=== PATIENT | female | born 1970 | race Hispanic/Latino ===

== ENCOUNTER → 2017-10-11 | Outpatient (CLI) | payer OTHER ==
[~2017-10-11] MED LIST: ACETAMINOP325 MG/10 PO; ADVIL200 MG PO
--- NOTE | 2017-10-19 16:07 | Diagnostic Imaging Report ---
#[id number] - MGSCRBIL #BILATERAL DIGITAL SCREENING MAMMOGRAM WITH CAD: 10/11/2017 CLINICAL: Routine screening. Comparison is made to exams dated: 12/20/2016 mammogram, 01/14/2016 mammogram and 11/26/2014 mammogram - [facility]. Current study contains 4 films. The tissue of both breasts is heterogeneously dense. This may lower the sensitivity of mammography. Current study was also evaluated with a Computer Aided Detection (CAD) system. There is a biopsy clip in the right breast. No significant masses, calcifications, or other findings are seen in either breast. There has been no significant interval change. IMPRESSION: BENIGN There is no mammographic evidence of malignancy. A 1 year screening mammogram is recommended. The patient will be notified by letter of the results. Hugh shelton/lianna:10/19/2017 08:38:22 Resident Programs Assistant: Lily FAIRBANKS(R)(M), [facility] letter sent: Compared to Prior B9 Mammogram BI-RADS: 2 Benign
== END ==
LOC: MAMMO 09:51
PROVIDERS: ATTEND Obstetrics & Gynecology
DX: Z12.31 Encounter for screening mammogram for malignant neoplasm of breast (principal)
CPT/HCPCS: G0202

== ENCOUNTER → 2017-11-19 | Outpatient (CLI) | payer OTHER ==
--- NOTE | 2017-11-20 08:25 | Diagnostic Imaging Report ---
#[id number] - USBRECOMLT ULTRASOUND OF THE LEFT BREAST : 11/19/2017 Comparison is made to exams dated: 10/11/2017 mammogram, 12/20/2016 ultrasound and 12/20/2016 mammogram - [facility]. Color flow and real-time ultrasound were performed on the entire left breast with scanning in all four quadrants, retroareolar region and the left axilla. -Hypoechoic nodule at 2:00 that is 1 cm from the nipple is smaller now measuring 5 x 5 x 6 mm -Multiple cysts are either smaller or stable -Hypoechoic nodule at 11:00 that is 1 cm from the nipple is similar in size IMPRESSION: BENIGN There is no sonographic evidence of malignancy or interval change. A 1 year screening mammogram is recommended. Hugh Leos Jr., D.O. cw/:11/19/2017 15:20:27 Nuclear Technician: MARTELL GONZALEZ, [facility] letter sent: Normal Exam Ultrasound BI-RADS: 2 Benign
--- NOTE | 2017-11-20 08:25 | Diagnostic Imaging Report ---
#[id number] - USBRECOMRT ULTRASOUND OF THE RIGHT BREAST : 11/19/2017 Comparison is made to exams dated: 10/11/2017 mammogram, 12/20/2016 ultrasound and 12/20/2016 mammogram - [facility]. Color flow and real-time ultrasound were performed on the entire right breast with scanning in all four quadrants, retroareolar region and the right axilla. -A cyst is present at 7 o'clock 10 cm from the nipple measuring 4 x 3 x 7 mm. -A cyst is present at 9 o'clock 5 cm from the nipple measuring 3 x 5 x 2 mm. This is at the site of pain. Directly adjacent is a heterogenous area of distortion that may be related to the prior biopsy. -A heterogenous area at 11 o'clock 3 cm from the nipple appears more prominent. This should be followed up especially if the patient continues to have pain. IMPRESSION: PROBABLY BENIGN - FOLLOW-UP RECOMMENDED A follow-up ultrasound in 6 months is recommended to demonstrate stability if there is continued symptoms. The patient was notified of these findings and the need for followup as clinically indicated. The recent mammogram in October 2017 appeared normal. Hugh Leos Jr., D.O. cw/:11/19/2017 15:33:55 Secondary School Teacher: MARTELL GONZALEZ, [facility] letter sent: Followup Recommended Ultrasound BI-RADS: 3 Probably benign
== END ==
LOC: US 13:06
PROVIDERS: ATTEND Obstetrics & Gynecology
DX: R92.2 Inconclusive mammogram (principal)

== ENCOUNTER → 2018-06-04 | Outpatient (CLI) | payer OTHER ==
--- NOTE | 2018-06-05 08:57 | Diagnostic Imaging Report ---
#[id number] [facility] : 06/04/2018 Comparison is made to exams dated: 11/19/2017 ultrasound, 10/11/2017 mammogram, 12/20/2016 ultrasound, 12/20/2016 mammogram and 08/17/2016 ultrasound - [facility]. Color flow and real-time ultrasound were performed on the entire right breast with scanning in all four quadrants, retroareolar region and the right axilla. -At 1 o'clock 5 cm from the nipple is a benign appearing hypoechoic nodule measuring 4 x 2 x 5 mm. -At 1 o'clock 2 cm from the nipple is a benign cyst measuring 4 x 3 x 6 mm. -At 7 o'clock 10 cm from the nipple is a benign cyst measuring 7 x 7 x 8 mm (previously 4 x 3 x 7 mm) -At 9 o'clock 5 cm from the nipple is a benign cyst measuring 5 x 3 x 4 mm (previously 5 x 2 x 3) -At 11 o'clodk where there was a hypoechoic nodule on the previous exam no abnormality is visualized. IMPRESSION: BENIGN There is no sonographic evidence of malignancy. A 1 year screening mammogram is recommended. Hugh Leos Jr., D.O. cw/:06/04/2018 14:15:20 [employer]chant [employer]: HECTOR MARIE RDMS, [facility] letter sent: Normal Exam Ultrasound BI-RADS: 2 Benign
== END ==
LOC: US 09:39
PROVIDERS: ATTEND Obstetrics & Gynecology
DX: N60.01 Solitary cyst of right breast (principal)

== ENCOUNTER → 2019-02-12 | Outpatient (CLI) | payer OTHER ==
--- NOTE | 2019-02-12 13:17 | Diagnostic Imaging Report ---
EXAM: US ABDOMEN COMPLETE INDICATION: Abdominal pain. COMPARISON: None TECHNIQUE: Transverse and longitudinal mcwilliams scale and color doppler sonographic images of the abdomen were obtained. FINDINGS: LIVER 14.2 cm in the right midclavicular line. Increased echogenicity of the liver with normal contour, no masses. SPLEEN 10.2 cm in maximum diameter. Normal echogenicity, no masses. GALLBLADDER There is cholelithiasis at the gallbladder neck. No gallbladder wall thickening, distension, or pericholecystic fluid. Negative reported sonographic Robles's sign. BILE DUCTS No intra nor extra-hepatic biliary dilation. Common bile duct measures 0.2 cm PANCREAS: Visualized portions are normal. RIGHT KIDNEY: 10.4 cm Echogenicity: Normal Collecting System: No hydronephrosis Stones: None Cyst/Mass: None LEFT KIDNEY: 9.8 cm Echogenicity: Normal Collecting System: No hydronephrosis Stones: None Cyst/Mass: None VESSELS: Aorta: Limited evaluation due to overlying bowel gas. Inferior Vena Cava: Limited evaluation due to overlying bowel gas. Main Portal Vein: 0.5 cm, normal size with hepatopetal flow. FREE FLUID: None IMPRESSION: Nonmobile gallstones at the gallbladder neck. No sonographic evidence of cholecystitis. Hepatic steatosis. Signed by: Dr. Jaime Spence MD on 02/12/2019 1:14 PM
== END ==
LOC: US 11:40
PROVIDERS: ATTEND Family Medicine
DX: R10.9 Unspecified abdominal pain (principal); K80.80 Other cholelithiasis without obstruction; K76.0 Fatty (change of) liver, not elsewhere classified
CPT/HCPCS: 76700

== ENCOUNTER → 2019-02-21 | Outpatient (CLI) | payer OTHER ==
--- NOTE | 2019-02-21 15:07 | Diagnostic Imaging Report ---
Hepatobiliary Scan with Gallbladder Ejection Fraction Clinical information: Abdominal pain; cholelithiasis Technique: Following intravenous administration of 6.5 millicuries of Tc-99m mebrofenin, dynamic images of the abdomen in the anterior projection were obtained through 16 minutes. Sincalide (CCK analog) 1.3 micrograms was administered intravenously over 30 minutes with additional imaging for determination of gallbladder ejection fraction. Discussion: Perfusion of the liver is normal. Extraction of tracer by the liver parenchyma is normal. Tracer appears promptly within the biliary tract. The gallbladder begins to fill by 8 minutes post injection of tracer and fills adequately. Tracer is seen in the small bowel by 8 minutes. The gallbladder ejection fraction with sincalide is 10% (normal greater than 40%). Impression: 1. Filling of the gallbladder excludes acute cystic duct obstruction/acute cholecystitis. 2. The decreased gallbladder ejection fraction of 10% supports the clinical diagnosis of chronic cholecystitis/gallbladder dyskinesia. Signed by: Dr. Lily Ribeiro M.D. on 02/21/2019 3:03 PM
== END ==
LOC: NM 11:29
PROVIDERS: ATTEND Family Medicine
DX: R10.9 Unspecified abdominal pain (principal); K80.80 Other cholelithiasis without obstruction
CPT/HCPCS: 78227; A9537

== ENCOUNTER → 2019-03-28 | Day surgery (SDC) | payer OTHER ==
[2019-03-25 14:01] LABS: BASOPHILS % 0.6 % (0.0-1.0); EOSINOPHILS # (AUTO) 0.1 (0.0-0.4); EOSINOPHILS % 1.1 % (0.0-6.0); HEMATOCRIT 39.9 % (34.2-44.1); HEMOGLOBIN 13.1 g/dL (12.0-16.0); LYMPHOCYTES # (AUTO) 2.5 (1.0-3.2); LYMPHOCYTES % 39.7 % (18.0-39.1); MEAN CORPUSCULAR HEMOGLOBIN 29.6 pg (28-32); MEAN CORPUSCULAR HGB CONC 32.8 g/dL (31-35); MEAN CORPUSCULAR VOLUME 90.1 fL (81-99); MONOCYTES # (AUTO) 0.3 (0.2-0.8); MONOCYTES % 4.8 % (4.4-11.3); NEUTROPHILS # (AUTO) 3.4 (2.1-6.9); NEUTROPHILS % 53.6 % (38.7-80.0); PLATELET COUNT 217 x10e3/uL (140-360); RED BLOOD COUNT 4.43 x10e6/uL (3.6-5.1)
[2019-03-25 14:17] LABS: ANION GAP 11.7 mmol/L (8-16); BLOOD UREA NITROGEN 13 mg/dL (7-26); BUN/CREATININE RATIO 17 (6-25); CALCIUM 9.4 mg/dL (8.4-10.2); CARBON DIOXIDE 26 mmol/L (22-29); CHLORIDE 105 mmol/L (98-107); CREATININE, SERUM 0.75 mg/dL (0.57-1.11); EST GLOMERULAR FILTRATION RATE > 60 ML/MIN (60-); GLUCOSE 75 mg/dL (74-118); POTASSIUM 3.7 mmol/L (3.5-5.1); SODIUM 139 mmol/L (136-145)
[~2019-03-28] MED LIST changes: +BUPIVACAINE 0.25%/EPI 30ML SDV INJ ONE; +DEXAMETHASONE SOD PHOS INJ 4 MG/ML VIAL ONE; +EPHEDRINE SULFATE INJ 50 MG/10 ML SYR ONE; +FENTANYL CITRATE/PF 100MCG/2 ML INJ ONE; +GLYCOPYRROLATE INJ 1MG/ 5 ML SYR ONE; +HYDROCODONE/APAP 7.5MG-325MG 1 EA TAB ONE; +KETOROLAC TROMETHAMINE 30 MG/ML VIAL ONE; +LIDOCAINE HCL 2% LOCAL INJ 5 ML SDV VIAL INJ ONE; +MIDAZOLAM HCL 2 MG/2 ML VIAL ONE; +NEOSTIGMINE 5 MG/5ML SYR ONE; +ONDANSETRON HCL INJ 2MG/ML 2ML 2 MG/ML VIAL ONE; +PROPOFOL IV EMULSION 10 MG/ML 20 ML VIAL ONE; +ROCURONIUM BROMIDE 10 MG/ML 5ML VIAL ONE; +SEVOFLURANE INHAL SOLN 250 ML PEN BTL ONE
--- OUTSIDE RECORDS SUMMARY | 2019-03-28 07:10 | XMS REPORT ---
Author Author [facility] Address Unknown Phone Unavailable Care Team Providers Care Paving Rammer Name Role Phone WAQAR SHEIKH Unavailable Unavailable RENZO GA Unavailable Unavailable Problems This patient has no known problems. Allergies, Adverse Reactions, Alerts This patient has no known allergies or adverse reactions. Medications This patient has no known medications. Results Test Description Test Time Test Comments Text Results Atomic Results Result Comments HEPTOBILIARY W PHARM 2019-02-21 15:03:00 [place] [address] Patient Name: PAUL DANIEL MR #: [id number] : 1970 Age/Sex: 48/F Req #: [id number] Adm Physician: Ordered by: KORI SMITH, WAQAR Gusman MD Report #: [id number] Location: [place] Room/Bed: Procedure: [id number] NM/HEPTOBILIARY W PHARM Exam Date: Exam Time: REPORT STATUS: Signed Hepatobiliary Scan with Gallbladder Ejection Fraction Clinical information: Abdominal pain; cholelithiasis Technique: Following intravenous administration of 6.5 millicuries of Tc-99m mebrofenin, dynamic images of the abdomen in the anterior projection were obtained through 16 minutes. Sincalide (CCK analog) 1.3 micrograms was administered intravenously over 30 minutes with additional imaging for determination of gallbladder ejection fraction. Discussion: Perfusion of the liver is normal. Extraction of tracer by the liver parenchyma is normal. Tracer appears promptly within the biliary tract. The gallbladder begins to fill by 8 minutes post injection of tracer and fills adequately. Tracer is seen in the small bowel by 8 minutes. The gallbladder ejection fraction with sincalide is 10% (normal greater than 40%). Impression: 1. Filling of the gallbladder excludes acute cystic duct obstruction/acute cholecystitis. 2. The decreased gallbladder ejection fraction of 10% supports the clinical diagnosis of chronic cholecystitis/gallbladder dyskinesia. Signed by: Dr. Alexis Ribeiro M.D. on 02/21/2019 3:03 PM Dictated By: ALEXIS RIBEIRO MD 1501 Transcribed By: KIMBERLY on 02/21/19 150 COPY TO: WAQAR SHEIKH US ABDOMEN COMPLETE 2019-02-12 13:10:00 [place] [address] Patient Name: PAUL DAINEL MR #: [id number] : 1970 Age/Sex: 48/F Req #: [id number] Adm Physician: Ordered by: KORI SMITH, WAQAR Gusman MD Report #: [id number] Location: Room/Bed: Procedure: [id number] US/US ABDOMEN COMPLETE Exam Date: 02/12/19 Exam Time: 1217 REPORT STATUS: Signed EXAM: US ABDOMEN COMPLETE INDICATION: Abdominal pain. COMPARISON: None TECHNIQUE: Transverse and longitudinal mcwilliams scale and color doppler sonographic images of the abdomen were obtained. FINDINGS: LIVER 14.2 cm in the right midclavicular line. Increased echogenicity of the liver with normal contour, no masses. SPLEEN 10.2 cm in maximum diameter. Normal echogenicity, no masses. GALLBLADDER There is cholelithiasis at the gallbladder neck. No gallbladder wall thickening, distension, or pericholecystic fluid. Negative reported sonographic Robles's sign. BILE DUCTS No intra nor extra-hepatic biliary dilation. Common bile duct measures 0.2 cm PANCREAS: Visualized portions are normal. RIGHT KIDNEY: 10.4 cm Echogenicity: Normal Collecting System: No hydronephrosis Stones: None Cyst/Mass: None LEFT KIDNEY: 9.8 cm Echogenicity: Normal Collecting System: No hydronephrosis Stones: None Cyst/Mass: None VESSELS: Aorta: Limited evaluation due to overlying bowel gas. Inferior Vena Cava: Limited evaluation due to overlying bowel gas. Main Portal Vein: 0.5 cm, normal size with hepatopetal flow. FREE FLUID: None IMPRESSION: Nonmobile gallstones at the gallbladder neck. No sonographic evidence of cholecystitis. Hepatic steatosis. Signed by: Dr. Cody Mary MD on 02/12/2019 1:14 PM Dictated By: CODY MARY MD 1314 Transcribed By: KIMBERLY on 02/12/19 1314 COPY TO: WAQAR SHEIKH US BREAST COMPLETE RIGHT 2018-06-04 10:52:00 [place] [address] Patient Name: PAUL DANIEL MR #: [id number] : 1970 Age/Sex: 48/F Req #: [id number] Adm Physician: Ordered by: RENZO GA MD Report #: [id number] Location: Room/Bed: Procedure: [id number] US/US BREAST COMPLETE RIGHT Exam Date: 06/04/18 Exam Time: 1001 REPORT STATUS: Signed #[id number] - USBRECOMRT ULTRASOUND OF THE RIGHT BREAST : 06/04/2018 Comparison is made to exams dated: 11/19/2017 ultrasound, 10/11/2017 mammogram, 12/20/2016 ultrasound, 12/20/2016 mammogram and 08/17/2016 ultrasound - [facility]. Color flow and real-time ultrasound were performed on the entire right breast with scanning in all four quadrants, retroareolar region and the right axilla. -At 1 o'clock 5 cm from the nipple is a benign appearing hypoechoic nodule measuring 4 x 2 x 5 mm. -At 1 o'clock 2 cm from the nipple is a benign cyst measuring 4 x 3 x 6 mm. -At 7 o'clock 10 cm from the nipple is a benign cyst measuring 7 x 7 x 8 mm (previously 4 x 3 x 7 mm) -At 9 o'clock 5 cm from the nipple is a benign cyst measuring 5 x 3 x 4 mm (previously 5 x 2 x 3) -At 11 o'clodk where there was a hypoechoic nodule on the previous exam no abnormality is visualized. IMPRESSION: BENIGN There is no sonographic evidence of malignancy. A 1 year screening mammogram is recommended. Flor Leos Jr., D.O. cw/:06/04/2018 14:15:20 Flight Coordinator: HECTOR MARIE [facility], [facility] letter sent: Normal Exam Ultrasound BI-RADS: 2 Benign Dictated By: FLOR LEOS DO 141 Transcribed By: WIL on 06/04/18 1415 COPY TO: RENZO GA MD US BREAST COMPLETE LEFT [place] [address] Patient Name: PAUL DANIEL MR #: [id number] : 1970 Age/Sex: 47/F Req #: [id number] Adm Physician: Ordered by: RENZO GA MD Report #: [id number] Location: US Room/Bed: Procedure: [id number] US/US BREAST COMPLETE LEFT Exam Date: 11/19/17 Exam Time: 1345 REPORT STATUS: Signed #[id number] - USBRECOMLT ULTRASOUND OF THE LEFT BREAST : 11/19/2017 Comparison is made to exams dated: 10/11/2017 mammogram, 12/20/2016 ultrasound and 12/20/2016 mammogram - [facility]. Color flow and real-time ultrasound were performed on the entire left breast with scanning in all four quadrants, retroareolar region and the left axilla. -Hypoechoic nodule at 2:00 that is 1 cm from the nipple is smaller now measuring 5 x 5 x 6 mm -Multiple cysts are either smaller or stable - Hypoechoic nodule at 11:00 that is 1 cm from the nipple is similar in size IMPRESSION: BENIGN There is no sonographic evidence of malignancy or interval change. A 1 year screening mammogram is recommended. Flor Leos Jr., D.O. cw/:11/19/2017 15:20:27 Flight Coordinator: MARTELL GONZALEZ, [facility] letter sent: Normal Exam Ultrasound BI-RADS: 2 Benign Dictated By: FLOR LEOS DO 1520 Transcribed By: WIL on 11/19/17 1520 COPY TO: RENZO GA MD US BREAST COMPLETE RIGHT [place] [address] Patient Name: PAUL DANIEL MR #: [id number] : 1970 Age/Sex: 47/F Req #: [id number] Adm Physician: Ordered by: RENZO GA MD Report #: [id number] Location: US Room/Bed: Procedure: [id number] US/US BREAST COMPLETE RIGHT Exam Date: 11/19/17 Exam Time: 1345 REPORT STATUS: Signed #[id number] - USBRECOMRT ULTRASOUND OF THE RIGHT BREAST : 11/19/2017 Comparison is made to exams dated: 10/11/2017 mammogram, 12/20/2016 ultrasound and 12/20/2016 mammogram - [facility]. Color flow and real-time ultrasound were performed on the entire right breast with scanning in all four quadrants, retroareolar region and the right axilla. -A cyst is present at 7 o'clock 10 cm from the nipple measuring 4 x 3 x 7 mm. -A cyst is present at 9 o'clock 5 cm from the nipple measuring 3 x 5 x 2 mm. This is at the site of pain. Directly adjacent is a heterogenous area of distortion that may be related to the prior biopsy. -A heterogenous area at 11 o'clock 3 cm from the nipple appears more prominent. This should be followed up especially if the patient continues to have pain. IMPRESSION: PROBABLY BENIGN - FOLLOW-UP RECOMMENDED A follow-up ultrasound in 6 months is recommended to demonstrate stability if there is continued symptoms. The patient was notified of these findings and the need for followup as clinically indicated. The recent mammogram in October 2017 appeared normal. Flor Leos Jr., D.O. cw/:11/19/2017 15:33:55 Flight Coordinator: MARTELL GONZALEZ, [facility] letter sent: Followup Recommended Ultrasound BI-RADS: 3 Probably benign Dictated By: FLOR LEOS DO 1533 Transcribed By: WIL on 11/19/17 1533 COPY TO: RENZO GA MD MAMMOGRAPHY DIGITAL SCR BILAT [facility] [address] [place] [address] Patient Name: PAUL DANIEL MR #: [id number] : 1970 Age/Sex: 47/F Req #: [id number] Adm Physician: Ordered by: RENZO GA MD Report #: [id number] Location: MAMMO Room/Bed: Procedure: [id number] MG/MAMMOGRAPHY DIGITAL SCR BILAT Exam Date: 10/11/17 Exam Time: 1000 REPORT STATUS: Signed #[id number] - MGSCRBIL #BILATERAL DIGITAL SCREENING MAMMOGRAM WITH CAD: 10/11/2017 CLINICAL: Routine screening. Comparison is made to exams dated: 12/20/2016 mammogram, 01/14/2016 mammogram and 11/26/2014 mammogram - [facility]. Current study contains 4 films. The tissue of both breasts is heterogeneously dense. This may lower the sensitivity of mammography. Current study was also evaluated with a Computer Aided Detection (CAD) system. There is a biopsy clip in the right breast. No significant masses, calcifications, or other findings are seen in either breast. There has been no significant interval change. IMPRESSION: BENIGN There is no mammographic evidence of malignancy. A 1 year screening mammogram is recommended. The patient will be notified by letter of the results. Flor shelton/wil:10/19/2017 08:38:22 Flight Coordinator: Alexis SOLIS)(M), [facility] letter sent: Compared to Prior B9 Mammogram BI- RADS: 2 Benign Dictated By: FLOR LEOS DO 7 Transcribed By: WIL on 10/19/17837 COPY TO: RENZO GA MD
--- OUTSIDE RECORDS SUMMARY | 2019-03-28 07:10 | XMS REPORT | Summary of Care ---
Author Author [facility] Organization [facility] Address Unknown Phone Unavailable Encounter HQ Parvizntr_liborio(FIN) [id number] Date(s): 01/08/17 - 01/08/17 [facility] [address] [place] [address]- Discharge Disposition: Home or Self Care Attending Physician: Brijesh Campbell MD Admitting Physician: Brijesh Campbell MD Referring Physician: Brijesh Campbell MD Vital Signs No data available for this section Problem List Condition Effective Dates Status Health Status Informant Sleep Resolved apnea(Confirmed) Allergies, Adverse Reactions, Alerts Substance Reaction Severity Status NKDA Active Medications No data available for this section Results No data available for this section Immunizations No data available for this section Procedures Procedure Date Related Diagnosis Body Site Abdominoplasty Breast augmentation Hysterectomy Social History Social History Type Response Substance Abuse Use: None. Alcohol Never Smoking Status Never smoker; Exposure to Tobacco Smoke None; Cigarette Smoking Last 365 Days No; Reg Smoking Cessation Counseling No Assessment and Plan No data available for this section
--- OUTSIDE RECORDS SUMMARY | 2019-03-28 07:10 | XMS REPORT | Continuity of Care Document ---
Author Author [facility] Interface Address Unknown Phone Unavailable Problems Problem Status Onset Date Classification Date Reported Comments Source N63 UNSPECIFIED LUMP IN BREAST Active 01/03/2017 [facility] Sleep apnea Resolved Problem 01/11/2017 [facility] Medications Medication Details Route Status Patient Instructions Ordering Provider Order Date Source Allergies, Adverse Reactions, Alerts Substance Category Reaction Severity Reaction type Status Date Reported Comments Source Immunizations Immunization Date Given Site Status Last Updated Comments Source Results Order Name Results Value Reference Range Date Interpretation Comments Source Breast Mammo Diag UNI incl CAD MA Breast Mammo Diag UNI incl CAD MA - BREAST MAMMO DIAG UNI INCL CAD MA/R UNILATERAL RIGHT DIGITAL DIAGNOSTIC MAMMOGRAM WITH CAD POST-PROCEDURE IMAGING FOR MARKER PLACEMENT: 01/08/2017 CLINICAL: Post biopsy clip confirmation mammogram after ultrasound biopsy. Current study was evaluated with a Computer Aided Detection (CAD) system. Comparison is made to exams dated: 01/08/2017 ultrasound biopsy - [facility], 12/20/2016 ultrasound, 12/20/2016 mammogram, 08/17/2016 ultrasound, 02/07/2016 ultrasound and 01/14/2016 mammogram. The tissue of the right breast is heterogeneously dense, which could obscure detection of small masses. Post procedure digital mammogram demonstrates the biopsy clip in appropriate position. No other significant interval change. IMPRESSION: POST PROCEDURE MAMMOGRAM FOR MARKER PLACEMENT Biopsy clip is in appropriate position. Please see biopsy report for further details. Follow up with ACR/SBI guidelines. Tori mishra/lianna:01/08/2017 16:46:36 Moisture Conditioner Operator: Lilia Reid, [facility] This exam was dictated and interpreted by [id number] for [facility]. Mammogram BI-RADS: Post-procedure mammogram for marker placement 01/08/2017 - - Read by: Tori Gómez MD Dictated Date/time: 01/08/17 16:46 Electronically Signed by: Tori Gómez MD 01/08/17 16:46 FINAL REPORT [facility] Breast BX Uni w Clip Primary Side US Breast BX Uni w Clip Primary Side US - BREAST BX UNI W CLIP PRIMARY SIDE US/R ULTRASOUND GUIDED BIOPSY RIGHT BREAST WITH MARKING DEVICE INSERTED AND POST DIGITAL MAMMOGRAPHIC AND ULTRASOUND IMAGIN01/08/2017 CLINICAL: Right breast Mass 9 o'clock. PATIENT CONSENT: Oral and written informed consent was obtained. Risks, benefits, and alternatives were discussed with the patient. Risks include but are not limited to pain, infection, bleeding, incomplete procedure, repeat procedure, pneumothorax, damage to surrounding tissues, and allergic reaction. The patient understands the plan and wishes to proceed. A time out was performed immediately prior to the procedure to confirm the patient's identity (name/date of ) and correct procedure site. Correlation is made to exams dated: 12/20/2016 ultrasound, 12/20/2016 mammogram, 08/17/2016 ultrasound, 02/07/2016 ultrasound, 08/15/2013 mammogram and 01/14/2016 mammogram. An ultrasound guided biopsy using real-time ultrasound was performed for the concerning 6 mm circumscribed oval mass located in the right breast at 9 o'clock anterior depth 3 cm from the nipple. This was described on the previous ultrasound report. The skin was prepped in the usual manner. 5 ccs of 1% lidocaine was administered during the procedure. A skin sandra was made in the breast. The abnormality was approached from the lateral aspect. A 14 gauge biopsy needle was placed adjacent to the abnormality through an introducer device under ultrasound guidance. Once the needle was documented to be in the correct location, three cores were obtained using an Achieve automated firing device. A Gel Tim UltraCor S shaped clip was inserted into the biopsy cavity. A skin adhesive and a sterile dressing were applied to the access site. Post procedure digital mammographic and ultrasound imaging demonstrates the clip at the targeted area and partial removal of the abnormality. The specimens were sent to the laboratory for pathological analysis. IMPRESSION: ULTRASOUND GUIDED BIOPSY BENIGN Ultrasound guided biopsy of the 6 mm mass in the right breast at 9 o'clock anterior depth 3 cm from the nipple was successful with no apparent post procedure complications. Pathology indicates benign fibrocystic changes. Pathology results are concordant with imaging findings. A follow-up right diagnostic mammogram and possible ultrasound in 6 months is recommended to demonstrate stability. Tori mishra/:01/11/2017 15:33:18 Moisture Conditioner Operator: Laura Bello, [facility] This exam was dictated and interpreted by [id number] for [facility]. letter sent: Post Bx Results 01/08/2017 - - Read by: Tori Gómez MD Dictated Date/time: 01/11/17 15:33 Electronically Signed by: Tori Gómez MD 01/11/17 15:33 FINAL REPORT [facility] Vital Signs Vital Sign Value Date Comments Source Encounters Location Location Details Encounter Type Encounter Number Reason For Visit Attending Provider ADM Date DC Date Status Source Outpatient [id number] BRIJESH EDUARDO 01/03/2017 Active [facility] Outpatient [id number] Brijesh Eduardo 01/08/2017 01/09/2017 [facility] Procedures Procedure Code Date Perfomer Comments Source Abdominoplasty [id number] [facility] Breast augmentation [id number] [facility] Hysterectomy [id number] [facility]
--- NOTE | 2019-03-28 10:58 | Operative Report ---
DATE OF PROCEDURE: 03/28/2019 SURGEON: Philip Meehan MD PREOPERATIVE DIAGNOSES: Cholecystitis and cholelithiasis. POSTOPERATIVE DIAGNOSES: Cholecystitis and cholelithiasis. OPERATION PERFORMED: Laparoscopic cholecystectomy. ANESTHESIA: General. COMPLICATIONS: None. ESTIMATED BLOOD LOSS: Minimal. PROCEDURE IN DETAIL: With the patient lying in bed in the supine position under good general endotracheal anesthesia, the abdomen was prepped with Betadine solution and draped in the usual manner. A Veress needle was introduced into the right upper quadrant and pneumoperitoneum was established without any difficulty. A 5 mm trocar was placed in the right subcostal region and a 5 mm video laparoscope was placed into the intra-abdominal cavity. Video laparoscopy revealed some adhesions to the lower abdomen from the patient's previous surgeries, but the subumbilical area was free of any adhesions. An 11 mm trocar was then placed through the umbilicus and a 10 mm video laparoscope was placed into the intra-abdominal cavity. Under direct vision, two more 5 mm trocars were placed in the right subcostal region. Laparoscopy at this point revealed a gallbladder that was distended, it contained multiple small stones and there were numerous adhesions to the lower half of the gallbladder. The rest of the abdominal exploration was otherwise within normal limits. All the adhesions of the gallbladder were then slowly and carefully taken down. The peritoneum overlying the neck of the gallbladder was then opened and the cystic duct was identified. The cystic duct was followed to its junction with the common duct. The cystic duct was then circumferentially dissected away from the common duct, doubly clipped and divided. The cystic artery was similarly doubly clipped and divided. The gallbladder was then slowly and carefully taken off the liver bed using the cautery scissors and perfect hemostasis was ascertained. The gallbladder was grasped through the umbilical port and removed without any difficulty. Video laparoscopy was then again carried out. The liver bed was found to be perfectly dry, all of the excess fluid was aspirated, the pneumoperitoneum was evacuated and all the trocars were removed under direct vision. The midline fascia at the umbilicus was then closed with a [id number] of 0 Vicryl. All layers were infiltrated on the way out with solution of 0.25% Marcaine. Subcutaneous tissue was approximated with 3-0 Vicryl and the skin was closed with subcuticular 5-0 Vicryl. Benzoin, Steri-Strips, and Band-Aids were applied. The sponge, lap, and needle count was correct. The patient tolerated the procedure well and returned to the recovery room in stable condition. MD CARMINA Ray/MAC /[id number]
[2019-03-28 12:00] VITALS: BP 113/72
== END | disposition home or self-care (01) ==
LOC: OR 07:00
PROVIDERS: ATTEND Surgery
DX: K80.10 Calculus of gallbladder with chronic cholecystitis without obstruction (principal); K82.8 Other specified diseases of gallbladder; G47.33 Obstructive sleep apnea (adult) (pediatric); J45.909 Unspecified asthma, uncomplicated; Z01.810 Encounter for preprocedural cardiovascular examination; Z01.812 Encounter for preprocedural laboratory examination
CPT/HCPCS: 36415; 47562; 80048; 85025; 88304; 93005; C1766; J1100; J1885; J2001; J2250; J2405; J2704; J3490

== ENCOUNTER → 2019-04-04 | Outpatient (CLI) | payer OTHER ==
[~2019-04-04] MED LIST changes: -BUPIVACAINE 0.25%/EPI 30ML SDV INJ ONE; -DEXAMETHASONE SOD PHOS INJ 4 MG/ML VIAL ONE; -EPHEDRINE SULFATE INJ 50 MG/10 ML SYR ONE; -FENTANYL CITRATE/PF 100MCG/2 ML INJ ONE; -GLYCOPYRROLATE INJ 1MG/ 5 ML SYR ONE; -HYDROCODONE/APAP 7.5MG-325MG 1 EA TAB ONE; -KETOROLAC TROMETHAMINE 30 MG/ML VIAL ONE; -LIDOCAINE HCL 2% LOCAL INJ 5 ML SDV VIAL INJ ONE; -MIDAZOLAM HCL 2 MG/2 ML VIAL ONE; -NEOSTIGMINE 5 MG/5ML SYR ONE; -ONDANSETRON HCL INJ 2MG/ML 2ML 2 MG/ML VIAL ONE; -PROPOFOL IV EMULSION 10 MG/ML 20 ML VIAL ONE; -ROCURONIUM BROMIDE 10 MG/ML 5ML VIAL ONE; -SEVOFLURANE INHAL SOLN 250 ML PEN BTL ONE
--- NOTE | 2019-04-21 08:43 | Diagnostic Imaging Report ---
#[id number] - [id number] #BILATERAL DIGITAL SCREENING MAMMOGRAM WITH CAD: 04/04/2019 CLINICAL: Routine screening. Comparison is made to exams dated: 10/11/2017 mammogram and 12/20/2016 mammogram - [facility]. Current study contains 5 films. The tissue of both breasts is heterogeneously dense. This may lower the sensitivity of mammography. Current study was also evaluated with a Computer Aided Detection (CAD) system. There is a biopsy clip in the right breast. No significant masses, calcifications, or other findings are seen in either breast. IMPRESSION: BENIGN There is no mammographic evidence of malignancy. A 1 year screening mammogram is recommended. The patient will be notified by letter of the results. DANTE SERRANO M.D. ct/penrad:04/18/2019 12:19:44 Grape Pruner: Lily SOLIS)(Fernando), [facility] letter sent: Normal Exam Mammogram BI-RADS: 2 Benign
== END ==
LOC: MAMMO 14:39
PROVIDERS: ATTEND Obstetrics & Gynecology
DX: Z12.31 Encounter for screening mammogram for malignant neoplasm of breast (principal)
CPT/HCPCS: 77067

== ENCOUNTER → 2020-05-18 | Outpatient (CLI) | payer OTHER | LOC: MAMMO 10:35 | PROVIDERS: ATTEND Obstetrics & Gynecology | DX: Z12.31 Encounter for screening mammogram for malignant neoplasm of breast (principal) | CPT/HCPCS: 77067 ==

== ENCOUNTER → 2021-10-28 | Outpatient (CLI) | payer OTHER | LOC: MAMMO 13:24 | PROVIDERS: ATTEND Obstetrics & Gynecology | DX: Z12.31 Encounter for screening mammogram for malignant neoplasm of breast (principal) | CPT/HCPCS: 77067 ==

== ENCOUNTER → 2022-11-17 | Outpatient (CLI) | payer OTHER | LOC: MAMMO 14:24 | PROVIDERS: ATTEND Obstetrics & Gynecology | DX: Z12.31 Encounter for screening mammogram for malignant neoplasm of breast (principal) | CPT/HCPCS: 77067 ==

== ENCOUNTER → 2024-05-16 | Outpatient (REF) | payer BC ==
[~2024-05-16] MED LIST changes: +ESTRADIOL1 MG PO; +NAPROXEN250 MG PO
== END ==
LOC: MERGE 13:08 → MAMMO 13:08
PROVIDERS: ATTEND Obstetrics & Gynecology
DX: Z12.31 Encounter for screening mammogram for malignant neoplasm of breast (principal); M85.88 Other specified disorders of bone density and structure, other site
CPT/HCPCS: 77067; 77080

== ENCOUNTER → 2024-06-05 | Outpatient (REF) | payer BC | LOC: US 12:29 | PROVIDERS: ATTEND Obstetrics & Gynecology | DX: R92.30 Dense breasts, unspecified (principal) ==

== ENCOUNTER → 2024-11-05 | Outpatient (REF) | payer BC | LOC: MAMMO 12:49 | PROVIDERS: ATTEND Obstetrics & Gynecology | DX: L53.9 Erythematous condition, unspecified (principal) ==